=== PATIENT | male | born 1970 | race Two or more races ===

== ENCOUNTER 2019-02-13 07:50 | Inpatient (IN) ==
[2019-02-13] MEDS ORDERED: SODIUM CHLORIDE 0.9% 1000ML 1,000 ML IV SCH (08:15)
[2019-02-13 08:26] LABS: Basophils # (auto) 0.03 K/uL (0-0.2); Basophils % (auto) 0.4 %; Eosinophils # (auto) 0.07 K/uL (0-0.5); Eosinophils % (auto) 0.8 %; Hematocrit (blood only) 33.7 % (42-52); Hemoglobin 12.1 g/dL (14.0-18.0); Immature Granulocytes # (auto) 0.01 K/uL (0.00-0.02); Immature Granulocytes % (auto) 0.1 %; Lymphocytes # (auto) 0.85 K/uL (1.2-3.4); Lymphocytes % (auto) 10.3 %; Mean Corpuscular Hgb Conc 35.9 g/dL (32-36); Mean Corpuscular Volume 83.4 fL (80-100); Monocytes % (auto) 7.3 %; Neutrophils # (auto) 6.69 K/uL (1.4-6.5); Neutrophils % (auto) 81.1 %; Platelet Count 238 K/uL (130-400); RDW Coefficient of Variation 12.4 % (11.5-14.5); RDW Standard Deviation 37.8 fL (36.4-46.3); Red Blood Count 4.04 M/uL (4.7-6.1); White Blood Count 8.25 K/uL (4.8-10.8)
[2019-02-13 08:33] LABS: Aspartate Aminotransferase 29 U/L (15-37); BUN Creatinine Ratio 18.8 (10-20); Bilirubin Direct 0.2 mg/dl (0-0.2); Blood Urea Nitrogen 19 mg/dl (7-18); Calcium 8.7 mg/dl (8.5-10.1); Carbon Dioxide 27 mmol/L (21-32); Chloride 98 mmol/L (98-107); Creatinine Clr Calc Pharmacy 93.5 ml/min; Est GFR (Non-African American) 91.4; Glucose 182 mg/dl (70-99); Magnesium 1.9 mg/dl (1.8-2.4); Potassium 3.8 mmol/L (3.5-5.1); Sodium 133 mmol/L (136-145)
[2019-02-13 08:37] LABS: Alanine Aminotransferase 33 U/L (12-78); Alkaline Phosphatase 120 U/L (45-117); Bilirubin,Total 0.9 mg/dl (0.2-1); Globulin 4.1 gm/dl (2.5-4.0); Phosphorus 3.1 mg/dl (2.5-4.9); Total Protein 8.1 gm/dl (6.4-8.2); Troponin I < 0.015 ng/ml (0-0.045)
[2019-02-13] MEDS ORDERED: PROCHLORPERAZINE 2 ML IV ONE (08:46)
[2019-02-13] MEDS ORDERED: FAMOTIDINE 20MG IV PUSH 20 MG/5 ML SYR IV STA (08:46)
[2019-02-13] MEDS ORDERED: GI COCKTAIL ED USE PO STA (08:46)
[2019-02-13] MEDS ORDERED: SODIUM CHLORIDE 0.9% 1000ML 1,000 ML IV ONE (08:47)
--- NOTE | 2019-02-13 09:12 | XRay Report ---
XR chest 1V portable HISTORY: 48 years-old Male Chest Pain acute atypical chest pain COMPARISON: None available TECHNIQUE: Portable AP view of the chest FINDINGS: Cardiac silhouette is upper limits of normal in size. No pneumothorax, pleural effusion or overt pulm onary edema. Subsegmental bibasilar opacities are noted. Mild degenerative changes of the shoulders a nd spine. IMPRESSION: Minimal bibasilar opacities suggest atelectasis with summation density. No acute process identified. The above report was generated using voice recognition software. It may contain grammatical, syntax o r spelling errors. Electronically signed by: Vincent Heath M.D. 02/13/2019 9:10 AM
[2019-02-13] MEDS ORDERED: SUCRALFATE 1 GM/10 ML UDC PO STA (10:51)
[2019-02-13] MEDS ORDERED: SUCRALFATE 1 GM TAB ONE (11:18)
[2019-02-13] MEDS ORDERED: OPTIRAY 320 125ml IV PRN (11:35)
--- NOTE | 2019-02-13 11:55 | CT Scan Report ---
CT angio chest PE protocol HISTORY: 48 years-old Male with PE. Acute chest pain with shortness of breath, nausea and vomiting TECHNIQUE: Multiple CTA images of the chest were obtained after the intravenous administration of 119 ml Optiray 320. Coronal and sagittal MIPS were obtained from the axial data set and were submitted for review. All measurements were obtained according to NASCET criteria. A dose lowering technique w as utilized adhering to the principles of ALARA. COMPARISON: Chest radiograph and CT abdomen and pelvis studies of same day FINDINGS: CTA: Heart is mildly enlarged. No pericardial effusion. No thoracic aortic aneurysm or dissection. Patency of the imaged great vessels. The pulmonary arterial tree is opacified to level of the distal and sub segmental branches. The subsegmental branches of the lung bases are suboptimally visualized secondary to respiratory motion and contrast bolus timing. Segmental and subsegmental pulmonary emboli of the right upper lobe are noted (for example see image 192 of series 4) which are partially occlusive Ther e is no central pulmonary emboli or evidence of right heart strain. CT CHEST: No focal thyroid nodule or adenopathy. There is no pneumothorax or pleural effusion. Mild dependent s ubsegmental bibasilar groundglass densities suggest atelectasis. Calcified granuloma of the right upp er lobe. No suspicious pulmonary nodules or masses. Central airways appear patent. Wall thickening of the distal esophagus with mild gaseous distention. Soft tissues are unremarkable. Bones appear to be intact. IMPRESSION: 1. Segmental and subsegmental partially occlusive age-indeterminate pulmonary emboli of the right upp er lobe. The distal segmental and subsegmental branches of the lung bases are suboptimally visualized secondary to respiratory motion. 2. No adenopathy or focal airspace consolidation. 3. Mild nonspecific wall thickening about the distal esophagus. The above report was generated using voice recognition software. It may contain grammatical, syntax o r spelling errors. Electronically signed by: Vincent Heath M.D. 02/13/2019 11:54 AM
[2019-02-13 12:03] LABS: Appearance Urine Clear (Clear); Bacteria Urine Automated Negative (Negative); Bilirubin Urine Negative (Negative); Blood Urine Trace (Negative); Color Urine Yellow; Glucose Urine UA Negative (Negative); Ketones Urine Negative (Negative); Leukocyte Esterase Urine Negative (Negative); Nitrite Urine Negative (Negative); Protein Urine Negative (Negative); RBC Urine Automated 0-4 /hpf (0-4); Specific Gravity Urine 1.028 (1.000-1.030); Urobilinogen Urine Negative (Negative); pH Urine 5.5 (4.5-7.5)
--- NOTE | 2019-02-13 12:07 | CT Scan Report ---
ABDOMEN AND PELVIS CT WITH IV CONTRAST HISTORY: Acute generalized abdominal pain with nausea and vomiting abd pain, n/v TECHNIQUE: Multiaxial CT images of the abdomen and pelvis were performed following the use of intrave nous contrast. A dose lowering technique was utilized adhering to the principles of ALARA. COMPARISON STUDY: CTA of the chest of same day. FINDINGS: Minimal subsegmental bibasilar atelectasis. Suggestion of a 4 mm solid nodule of the basal left lower lobe, image 43 series 6. No pneumatosis or pneumoperitoneum. Study is mildly motion degraded. Imaged inferior cardiac chambers are mildly enlarged. Gallbladder, spleen, liver, pancreas and adrenal glands appear unremarkable. Mild nonspecific bilater al perinephric stranding. Distention of the urinary bladder measures up to 19.3 cm in length. Prostat e is prominent, 4.3 cm transversely. Aorta and IVC appear unremarkable. Mildly enlarged bilateral ang le chain lymph nodes are seen measuring up to 12 mm in short axis with thin cortices. Mild nonspecifi c wall thickening of the distal esophagus with mild gaseous distention. Layering hyperdense material within the gastric fundus. No small bowel obstruction. Mild to moderate volume of formed stool noted throughout the colon. Normal-appearing appendix. Terminal ileum is also unremarkable. There are a few scattered nondilated fluid-filled loops of small bowel noted throughout the central abdomen. No asci adrianne or mesenteric inflammation. Soft tissues are unremarkable. Spondylitic spurring and facet arthros is of the spine with at least moderate central canal stenosis at L5-S1. IMPRESSION: 1. Moderate to marked urinary bladder distention. Correlate clinically to exclude urinary bladder out let obstruction. 2. No bowel obstruction or bowel wall thickening. Normal appendix. 3. A few scattered loops of nondilated fluid-filled small bowel are noted with air-fluid levels. This may be physiologic or reflect a mild enteritis. 4. Additional findings as above. Electronically signed by: Vincent Heath M.D. 02/13/2019 12:06 PM
[2019-02-13 12:14] LABS: Sperm Urine Present (None Prsent)
--- NOTE | 2019-02-13 14:23 | CT Scan Report ---
CT SCAN OF THE BRAIN WITHOUT IV CONTRAST CLINICAL HISTORY: Change in mental status. COMPARISON STUDY: No priors. TECHNIQUE: Unenhanced axial CT scan of the brain is performed from the vertex to the skull base. A d ose lowering technique was utilized adhering to the principles of ALARA. FINDINGS: Brain parenchyma: The brain parenchyma is normal in appearance. There is no hemorrhage, mass effect, or evidence of acute territorial ischemia by CT criteria. Caraballo-white matter differentiation is preser chriss. No extra-axial fluid collection is seen. Ventricles, sulci, cisterns: Normal in configuration. Intracranial vasculature: The visualized intracranial vasculature at the skull base is normal in appe arance. Calvarium: Unremarkable. Sinuses and mastoids: The visualized paranasal sinuses are clear. The mastoid air cells are well pneu matized. Orbits: The bony orbits are grossly intact. IMPRESSION: No acute intracranial abnormality. Electronically signed by: Cash Hilliard M.D. 02/13/2019 2:21 PM
[2019-02-13 14:37] LABS: D Dimer 1110 ug/L FEU (0-500)
--- NOTE | 2019-02-13 15:21 | Emergency Department Note ---
Entered by Gayla Holcomb acting as a scribe for Raphael German MD History of Present Illness General Chief complaint: Chest Pain Stated complaint: chest pain Time Seen by Provider: 02/13/19 07:53 Source: patient History of Present Illness Onset (ago): day(s) 1 Location: chest Pain Consistency: + other (episode) Quality: + constant Associated symptoms: + nausea/vomiting (vomiting) The patient is a 48 year old male with a history of diabetes that is presenting to the Emergency Room with complaints of an episode of constant left-sided chest pain that started yesterday. The patient reports that he has some associated vomiting. He states that he was unable to sleep last night secondary to his pain and vomiting. The patient notes that he has a history of chronic diarrhea and diabetes. 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 He reports that his blood glucose level was 182mg/dL this morning and denies any recent episodes of hyperglycemia. He denies wearing O2 regularly at his correctional facility. Home Medications Home Medications Medication Instructions Recorded Confirmed Type hydrochlorothiazide 25 mg PO DAILY 02/13/19 02/13/19 History insulin NPH and regular human 15 unit SUBCUT QPM 02/13/19 02/13/19 History insulin NPH and regular human 25 unit SUBCUT QAM 02/13/19 02/13/19 History lisinopril 40 mg PO DAILY 02/13/19 02/13/19 History metformin 1,000 mg PO BID 02/13/19 02/13/19 History mineral oil-isopropyl myristat 1 applic TOPICAL DAILY PRN 02/13/19 02/13/19 History [Hydrocerin] naproxen 500 mg PO BID PRN 02/13/19 02/13/19 History Allergies Allergy/AdvReac Type Severity Reaction Status Date / Time No Known Allergies Allergy Unverified 02/13/19 08:45 Past Med/Surg History Medical History Chronic diarrhea (Chronic) Diabetes mellitus (Chronic) Family History Other No significant family history Social History Current Living Situation: Other Current Living Situation Comment: Incarcerated current occupational status: unemployed Feels Safe at Home: Yes Smoking Status: Former smoker Review of Systems See HPI for pertinent positives & negatives. and A total of 10 systems reviewed and were otherwise negative Physical Exam Vital Signs Vital Signs - 24 hr 02/13/19 07:55 02/13/19 08:00 02/13/19 08:26 Temperature 37.1 C Temperature Source Oral Sepsis Recent Fever Within 48 Hours No Sepsis Action Taken by Nursing No Action Required Pulse Rate 91 H 90 Pulse Rate [Left Finger] Pulse Rate from SpO2 Sensor 91 H 90 Respiratory Rate 19 19 Respiratory Effort / Characteristics Non-Labored Spontaneous Respiratory Depth Normal Blood Pressure 145/80 H 142/82 H Blood Pressure [Left Arm] Blood Pressure Mean 101 102 Blood Pressure Mean [Left Arm] Blood Pressure Position Lying Pulse Oximetry 94 95 95 Oxygen Delivery Method Room Air Room Air 02/13/19 08:30 02/13/19 09:00 02/13/19 09:30 Temperature Temperature Source Sepsis Recent Fever Within 48 Hours Sepsis Action Taken by Nursing Pulse Rate 84 95 H 96 H Pulse Rate [Left Finger] Pulse Rate from SpO2 Sensor 85 95 H 96 H Respiratory Rate 18 17 17 Respiratory Effort / Characteristics Respiratory Depth Blood Pressure 166/94 H 167/93 H 170/95 H Blood Pressure [Left Arm] Blood Pressure Mean 118 117 120 Blood Pressure Mean [Left Arm] Blood Pressure Position Pulse Oximetry 96 98 97 Oxygen Delivery Method 02/13/19 10:00 02/13/19 10:30 02/13/19 11:00 Temperature Temperature Source Sepsis Recent Fever Within 48 Hours Sepsis Action Taken by Nursing Pulse Rate 89 86 87 Pulse Rate [Left Finger] Pulse Rate from SpO2 Sensor 89 87 87 Respiratory Rate 16 16 16 Respiratory Effort / Characteristics Respiratory Depth Blood Pressure 129/79 151/93 H 135/93 Blood Pressure [Left Arm] Blood Pressure Mean 95 112 107 Blood Pressure Mean [Left Arm] Blood Pressure Position Pulse Oximetry 93 95 96 Oxygen Delivery Method 02/13/19 11:53 02/13/19 12:00 02/13/19 12:30 Temperature Temperature Source Sepsis Recent Fever Within 48 Hours Sepsis Action Taken by Nursing Pulse Rate 90 87 83 Pulse Rate [Left Finger] Pulse Rate from SpO2 Sensor 90 87 83 Respiratory Rate Respiratory Effort / Characteristics Respiratory Depth Blood Pressure 148/102 H 175/102 H 144/91 H Blood Pressure [Left Arm] Blood Pressure Mean 117 126 108 Blood Pressure Mean [Left Arm] Blood Pressure Position Pulse Oximetry 96 98 99 Oxygen Delivery Method 02/13/19 13:00 02/13/19 13:30 02/13/19 15:06 Temperature Temperature Source Sepsis Recent Fever Within 48 Hours Sepsis Action Taken by Nursing Pulse Rate 80 75 Pulse Rate [Left Finger] 78 Pulse Rate from SpO2 Sensor 80 75 Respiratory Rate 14 Respiratory Effort / Characteristics Respiratory Depth Blood Pressure 152/101 H 135/90 Blood Pressure [Left Arm] 151/88 H Blood Pressure Mean 118 105 Blood Pressure Mean [Left Arm] 109 Blood Pressure Position Pulse Oximetry 94 96 100 Oxygen Delivery Method GENERAL: Awake, alert, drowsy and fatigued appearing but alert to voice, in no distress HENT: Normocephalic, atraumatic. Oropharynx with dry mucous membranes and otherwise unremarkable. EYES: Normal conjunctiva. Sclera non-icteric. NECK: Supple. No nuchal rigidity. FROM. No JVD. RESPIRATORY: Clear to auscultation. CARDIAC: Regular rate, normal rhythm. Extremities warm and well perfused. Pulses equal. ABDOMEN: Soft, non-distended. Mild epigastric discomfort without discrete tenderness to palpation. No rebound or guarding. No masses. RECTAL: No stool, blood, or melena. MUSCULOSKELETAL: Chest examination reveals no tenderness. The back is symmetrical on inspection without obvious abnormality. There is no CVA tenderness to palpation. No joint edema. LOWER EXTREMITIES: Calves are equal size bilaterally and non-tender. No edema. No discoloration. NEURO: Normal sensorium. No sensory or motor deficits noted. SKIN: No rash or jaundice noted. Course 0806:The patient was evaluated in room B10. A complete history and physical examination was performed. 1051: I reevaluated the patient at this time. He states that he is not feeling better. A CT of the chest was ordered at this time. 1315: I discussed the patients case with MEREDITH Ornelas, who will evaluate the patient for further management and care with Dr. Bennett as the attending physician. 1340: After their evaluation, the [facility] team asked for a repeat troponin and D-dimer. Dr. Bennett recommends that the patient be discharged if his results are negative. 1347: I updated the patient on the current treatment plan. Consultations Consultation #1: I discussed the patients case with MEREDITH Ornelas, who will evaluate the patient for further management and care with Dr. Bennett as the attending physician. Time: 13:15 Administered Medications Ioversol (Optiray 320 125ml) 119 ml IV ONCE PRN PRN Reason: Interaction Checking Stop: 02/17/19 11:34 Last Admin: 02/13/19 11:36 Dose: 119 ml Documented by: [id number] Discontinued Medications Al Hydrox/Mg Hydrox/Simethicone () 1 dose PO NOW STA Stop: 02/13/19 08:47 Last Admin: 02/13/19 08:54 Dose: 1 dose Documented by: [id number] Sodium Chloride (Nss 1000ml) 1,000 mls @ 999 mls/hr IV .Q1H1M LUCILA Stop: 02/13/19 09:15 Last Infusion: 02/13/19 10:17 Dose: 0 mls/hr Documented by: [id number] Admin: 02/13/19 08:35 Dose: 999 mls/hr Documented by: [id number] Famotidine (Pepcid 20mg Iv Push) 20 mg in 5 mls @ 2.5 mls/min IV NOW STA Stop: 02/13/19 08:47 Last Admin: 02/13/19 08:53 Dose: 2.5 mls/min Documented by: [id number] Prochlorperazine (Compazine) 2 mls @ 1 mls/min IV ONE ONE Stop: 02/13/19 08:47 Last Admin: 02/13/19 08:53 Dose: 1 mls/min Documented by: [id number] Sodium Chloride (Nss 1000ml) 1,000 mls @ 999 mls/hr IV .Q1H1M ONE Stop: 02/13/19 09:47 Last Infusion: 02/13/19 10:16 Dose: 0 mls/hr Documented by: [id number] Infusion: 02/13/19 10:16 Dose: 0 mls/hr Documented by: [id number] Admin: 02/13/19 08:57 Dose: 999 mls/hr Documented by: [id number] Sucralfate (Carafate) 1 gm PO NOW STA Stop: 02/13/19 10:52 Last Admin: 02/13/19 11:20 Dose: Not Given Documented by: [id number] Sucralfate (Carafate Tab) Confirm Administered Dose 1 gm .ROUTE .Seatwave-[place]knot ONE Stop: 02/13/19 11:19 Last Admin: 02/13/19 11:20 Dose: 1 gm Documented by: [id number] Medical Decision Making Differential Diagnosis Differential diagnosis: Etiologies such as cardiac ischemia, aortic dissection, pulmonary embolism, pneumonia, pneumothorax, musculoskeletal, infections, pericarditis, myocarditis, esophageal rupture, gastrointestinal, as well as others were entertained. Medical Records Attestation: I reviewed the patient's medical records. Home Medications Current Medication List: was personally reviewed by me Laboratory Data Attestation: I reviewed the patient's lab results. Result diagrams: 02/13/19 08:01 02/13/19 08:01 Lab Results 02/13/19 02/13/19 02/13/19 Range/Units 08:01 08:01 08:01 WBC 8.25 (4.8-10.8) K/uL RBC 4.04 L (4.7-6.1) M/uL Hgb 12.1 L (14.0-18.0) g/dL Hct 33.7 L (42-52) % MCV 83.4 (80-100) fL MCH 30.0 (25-34) pg MCHC 35.9 (32-36) g/dL RDW Std Deviation 37.8 (36.4-46.3) fL RDW Coeff of Maya 12.4 (11.5-14.5) % Plt Count 238 (130-400) K/uL MPV 10.0 (7.4-10.4) fL Immature Gran % (Auto) 0.1 % Neut % (Auto) 81.1 % Lymph % (Auto) 10.3 % [place] % (Auto) 7.3 % Eos % (Auto) 0.8 % Baso % (Auto) 0.4 % Immature Gran # (Auto) 0.01 (0.00-0.02) K/uL Neut # (Auto) 6.69 H (1.4-6.5) K/uL Lymph # (Auto) 0.85 L (1.2-3.4) K/uL [place] # (Auto) 0.60 H (0.11-0.59) K/uL Eos # (Auto) 0.07 (0-0.5) K/uL Baso # (Auto) 0.03 (0-0.2) K/uL D-Dimer (0-500) ug/L FEU ABG pH (7.35-7.45) ABG pCO2 (35-46) mmHg ABG pO2 (80-95) mm/Hg ABG HCO3 (19-24) mmol/L ABG O2 Saturation (90-95) % ABG Base Excess (-9-1.8) mEq/L Bib Test (Pos) Barometric Pressure mm/Hg Oxygen Given Sodium 133 L (136-145) mmol/L Potassium 3.8 (3.5-5.1) mmol/L Chloride 98 (98-107) mmol/L Carbon Dioxide 27 (21-32) mmol/L Anion Gap 8.0 (3-11) BUN 19 H (7-18) mg/dl Creatinine 0.98 (0.6-1.4) mg/dl Est Cr Clr Drug Dosing 93.5 ml/min Est GFR ( Amer) 106.0 Est GFR (Non-Af Amer) 91.4 BUN/Creatinine Ratio 18.8 (10-20) Glucose 182 H (70-99) mg/dl Osmolality 282 (280-300) mOsm/kg Calcium 8.7 (8.5-10.1) mg/dl Phosphorus 3.1 (2.5-4.9) mg/dl Magnesium 1.9 (1.8-2.4) mg/dl Total Bilirubin 0.9 (0.2-1) mg/dl Direct Bilirubin 0.2 (0-0.2) mg/dl AST 29 (15-37) U/L ALT 33 (12-78) U/L Alkaline Phosphatase 120 H (45-117) U/L Troponin I < 0.015 (0-0.045) ng/ml Total Protein 8.1 (6.4-8.2) gm/dl Albumin 4.0 (3.4-5.0) gm/dl Globulin 4.1 H (2.5-4.0) gm/dl Albumin/Globulin Ratio 1.0 (0.9-2) Lipase 109 (73-393) U/L Urine Color Urine Appearance (Clear) Urine pH (4.5-7.5) Ur Specific [place] (1.000-1.030) Urine Protein (Negative) Urine Glucose (UA) (Negative) Urine Ketones (Negative) Urine Blood (Negative) Urine Nitrite (Negative) Urine Bilirubin (Negative) Urine Urobilinogen (Negative) Ur Leukocyte Esterase (Negative) Urine WBC (Auto) (0-5) /hpf Urine RBC (Auto) (0-4) /hpf U Hyaline Cast (Auto) (0-5) /lpf U Epithel Cells (Auto) (0-5) /lpf Urine Bacteria (Auto) (Negative) Urine Sperm (None Prsent) 02/13/19 02/13/19 02/13/19 Range/Units 11:35 14:19 14:19 WBC (4.8-10.8) K/uL RBC (4.7-6.1) M/uL Hgb (14.0-18.0) g/dL Hct (42-52) % MCV (80-100) fL MCH (25-34) pg MCHC (32-36) g/dL RDW Std Deviation (36.4-46.3) fL RDW Coeff of Maya (11.5-14.5) % Plt Count (130-400) K/uL MPV (7.4-10.4) fL Immature Gran % (Auto) % Neut % (Auto) % Lymph % (Auto) % [place] % (Auto) % Eos % (Auto) % Baso % (Auto) % Immature Gran # (Auto) (0.00-0.02) K/uL Neut # (Auto) (1.4-6.5) K/uL Lymph # (Auto) (1.2-3.4) K/uL [place] # (Auto) (0.11-0.59) K/uL Eos # (Auto) (0-0.5) K/uL Baso # (Auto) (0-0.2) K/uL D-Dimer 1110 H* (0-500) ug/L FEU ABG pH (7.35-7.45) ABG pCO2 (35-46) mmHg ABG pO2 (80-95) mm/Hg ABG HCO3 (19-24) mmol/L ABG O2 Saturation (90-95) % ABG Base Excess (-9-1.8) mEq/L Bib Test (Pos) Barometric Pressure mm/Hg Oxygen Given Sodium (136-145) mmol/L Potassium (3.5-5.1) mmol/L Chloride (98-107) mmol/L Carbon Dioxide (21-32) mmol/L Anion Gap (3-11) BUN (7-18) mg/dl Creatinine (0.6-1.4) mg/dl Est Cr Clr Drug Dosing ml/min Est GFR ( Amer) Est GFR (Non-Af Amer) BUN/Creatinine Ratio (10-20) Glucose (70-99) mg/dl Osmolality (280-300) mOsm/kg Calcium (8.5-10.1) mg/dl Phosphorus (2.5-4.9) mg/dl Magnesium (1.8-2.4) mg/dl Total Bilirubin (0.2-1) mg/dl Direct Bilirubin (0-0.2) mg/dl AST (15-37) U/L ALT (12-78) U/L Alkaline Phosphatase (45-117) U/L Troponin I < 0.015 (0-0.045) ng/ml Total Protein (6.4-8.2) gm/dl Albumin (3.4-5.0) gm/dl Globulin (2.5-4.0) gm/dl Albumin/Globulin Ratio (0.9-2) Lipase (73-393) U/L Urine Color Yellow Urine Appearance Clear (Clear) Urine pH 5.5 (4.5-7.5) Ur Specific [place] 1.028 (1.000-1.030) Urine Protein Negative (Negative) Urine Glucose (UA) Negative (Negative) Urine Ketones Negative (Negative) Urine Blood Trace H (Negative) Urine Nitrite Negative (Negative) Urine Bilirubin Negative (Negative) Urine Urobilinogen Negative (Negative) Ur Leukocyte Esterase Negative (Negative) Urine WBC (Auto) 5-10 H (0-5) /hpf Urine RBC (Auto) 0-4 (0-4) /hpf U Hyaline Cast (Auto) 1-5 (0-5) /lpf U Epithel Cells (Auto) 10-20 H (0-5) /lpf Urine Bacteria (Auto) Negative (Negative) Urine Sperm Present A (None Prsent) 02/13/19 Range/Units 15:59 WBC (4.8-10.8) K/uL RBC (4.7-6.1) M/uL Hgb (14.0-18.0) g/dL Hct (42-52) % MCV (80-100) fL MCH (25-34) pg MCHC (32-36) g/dL RDW Std Deviation (36.4-46.3) fL RDW Coeff of Maya (11.5-14.5) % Plt Count (130-400) K/uL MPV (7.4-10.4) fL Immature Gran % (Auto) % Neut % (Auto) % Lymph % (Auto) % [place] % (Auto) % Eos % (Auto) % Baso % (Auto) % Immature Gran # (Auto) (0.00-0.02) K/uL Neut # (Auto) (1.4-6.5) K/uL Lymph # (Auto) (1.2-3.4) K/uL [place] # (Auto) (0.11-0.59) K/uL Eos # (Auto) (0-0.5) K/uL Baso # (Auto) (0-0.2) K/uL D-Dimer (0-500) ug/L FEU ABG pH 7.40 (7.35-7.45) ABG pCO2 43 (35-46) mmHg ABG pO2 79 L (80-95) mm/Hg ABG HCO3 26 H (19-24) mmol/L ABG O2 Saturation 95.2 H (90-95) % ABG Base Excess 0.6 (-9-1.8) mEq/L Bib Test Pos (Pos) Barometric Pressure 731.3 mm/Hg Oxygen Given ROOM AIR Sodium (136-145) mmol/L Potassium (3.5-5.1) mmol/L Chloride (98-107) mmol/L Carbon Dioxide (21-32) mmol/L Anion Gap (3-11) BUN (7-18) mg/dl Creatinine (0.6-1.4) mg/dl Est Cr Clr Drug Dosing ml/min Est GFR ( Amer) Est GFR (Non-Af Amer) BUN/Creatinine Ratio (10-20) Glucose (70-99) mg/dl Osmolality (280-300) mOsm/kg Calcium (8.5-10.1) mg/dl Phosphorus (2.5-4.9) mg/dl Magnesium (1.8-2.4) mg/dl Total Bilirubin (0.2-1) mg/dl Direct Bilirubin (0-0.2) mg/dl AST (15-37) U/L ALT (12-78) U/L Alkaline Phosphatase (45-117) U/L Troponin I (0-0.045) ng/ml Total Protein (6.4-8.2) gm/dl Albumin (3.4-5.0) gm/dl Globulin (2.5-4.0) gm/dl Albumin/Globulin Ratio (0.9-2) Lipase (73-393) U/L Urine Color Urine Appearance (Clear) Urine pH (4.5-7.5) Ur Specific [place] (1.000-1.030) Urine Protein (Negative) Urine Glucose (UA) (Negative) Urine Ketones (Negative) Urine Blood (Negative) Urine Nitrite (Negative) Urine Bilirubin (Negative) Urine Urobilinogen (Negative) Ur Leukocyte Esterase (Negative) Urine WBC (Auto) (0-5) /hpf Urine RBC (Auto) (0-4) /hpf U Hyaline Cast (Auto) (0-5) /lpf U Epithel Cells (Auto) (0-5) /lpf Urine Bacteria (Auto) (Negative) Urine Sperm (None Prsent) Imaging Data Radiologist's Impression: Radiology results as stated below per my review and the radiologist's interpretation: XR chest 1V portable HISTORY: 48 years-old Male Chest Pain acute atypical chest pain COMPARISON: None available TECHNIQUE: Portable AP view of the chest FINDINGS: Cardiac silhouette is upper limits of normal in size. No pneumothorax, pleural effusion or overt pulmonary edema. Subsegmental bibasilar opacities are noted. Mild degenerative changes of the shoulders and spine. IMPRESSION: Minimal bibasilar opacities suggest atelectasis with summation density. No acute process identified. The above report was generated using voice recognition software. It may contain grammatical, syntax or spelling errors. Electronically signed by: Vincent Heath M.D. 02/13/2019 9:[address] angio chest PE protocol HISTORY: 48 years-old Male with PE. Acute chest pain with shortness of breath, nausea and vomiting TECHNIQUE: Multiple CTA images of the chest were obtained after the intravenous administration of 119 ml Optiray 320. Coronal and sagittal MIPS were obtained from the axial data set and were submitted for review. All measurements were obtained according to NASCET criteria. A dose lowering technique was utilized adhering to the principles of ALARA. COMPARISON: Chest radiograph and CT abdomen and pelvis studies of same day FINDINGS: CTA: Heart is mildly enlarged. No pericardial effusion. No thoracic aortic aneurysm or dissection. Patency of the imaged great vessels. The pulmonary arterial tree is opacified to level of the distal and subsegmental branches. The subsegmental branches of the lung bases are suboptimally visualized secondary to respiratory motion and contrast bolus timing. Segmental and subsegmental pulmonary emboli of the right upper lobe are noted (for example see image 192 of series 4) which are partially occlusive There is no central pulmonary emboli or evidence of right heart strain. CT CHEST: No focal thyroid nodule or adenopathy. There is no pneumothorax or pleural effusion. Mild dependent subsegmental bibasilar groundglass densities suggest atelectasis. Calcified granuloma of the right upper lobe. No suspicious pulmonary nodules or masses. Central airways appear patent. Wall thickening of the distal esophagus with mild gaseous distention. Soft tissues are unremarkable. Bones appear to be intact. IMPRESSION: 1. Segmental and subsegmental partially occlusive age-indeterminate pulmonary emboli of the right upper lobe. The distal segmental and subsegmental branches of the lung bases are suboptimally visualized secondary to respiratory motion. 2. No adenopathy or focal airspace consolidation. 3. Mild nonspecific wall thickening about the distal esophagus. The above report was generated using voice recognition software. It may contain grammatical, syntax or spelling errors. Electronically signed by: Vincent Heath M.D. 02/13/2019 11:54 AM ABDOMEN AND PELVIS CT WITH IV CONTRAST HISTORY: Acute generalized abdominal pain with nausea and vomiting abd pain, n/v TECHNIQUE: Multiaxial CT images of the abdomen and pelvis were performed following the use of intravenous contrast. A dose lowering technique was utilized adhering to the principles of ALARA. COMPARISON STUDY: CTA of the chest of same day. FINDINGS: Minimal subsegmental bibasilar atelectasis. Suggestion of a 4 mm solid nodule of the basal left lower lobe, image 43 series 6. No pneumatosis or pneumoperitoneu m. Study is mildly motion degraded. Imaged inferior cardiac chambers are mildly enlarged. Gallbladder, spleen, liver, pancreas and adrenal glands appear unremarkable. Mild nonspecific bilateral perinephric stranding. Distention of the urinary bladder measures up to 19.3 cm in length. Prostate is prominent, 4.3 cm transversely. Aorta and IVC appear unremarkable. Mildly enlarged bilateral angle chain lymph nodes are seen measuring up to 12 mm in short axis with thin cortices. Mild nonspecific wall thickening of the distal esophagus with mild gaseous distention. Layering hyperdense material within the gastric fundus. No small bowel obstruction. Mild to moderate volume of formed stool noted thr oughout the colon. Normal-appearing appendix. Terminal ileum is also unremarkable. There are a few scattered nondilated fluid-filled loops of small bowel noted throughout the central abdomen. No ascites or mesenteric inflammation. Soft tissues are unremarkable. Spondylitic spurring and facet arthrosis of the spine with at least moderate central canal stenosis at L5-S1. IMPRESSION: 1. Moderate to marked urinary bladder distention. Correlate clinically to exclude urinary bladder outlet obstruction. 2. No bowel obstruction or bowel wall thickening. Normal appendix. 3. A few scattered loops of nondilated fluid-filled small bowel are noted with air-fluid levels. This may be physiologic or reflect a mild enteritis. 4. Additional findings as above. Electronically signed by: Vincent Heath M.D. 02/13/2019 12:[address] SCAN OF THE BRAIN WITHOUT IV CONTRAST CLINICAL HISTORY: Change in mental status. COMPARISON STUDY: No priors. TECHNIQUE: Unenhanced axial CT scan of the brain is performed from the vertex to the skull base. A dose lowering technique was utilized adhering to the principles of ALARA. FINDINGS: Brain parenchyma: The brain parenchyma is normal in appearance. There is no hemorrhage, mass effect, or evidence of acute territorial ischemia by CT criteria. Caraballo-white matter differentiation is preserved. No extra-axial fluid collection is seen. Ventricles, sulci, cisterns: Normal in configuration. Intracranial vasculature: The visualized intracranial vasculature at the skull base is normal in appearance. Calvarium: Unremarkable. Sinuses and mastoids: The visualized paranasal sinuses are clear. The mastoid air cells are well pneumatized. Orbits: The bony orbits are grossly intact. IMPRESSION: No acute intracranial abnormality. Electronically signed by: Cash Hilliard M.D. 02/13/2019 2:21 PM ECG Data Attestation: I personally reviewed and interpreted this ECG as follows: Indication: weakness Rate (beats per minute): 92 Rhythm: normal sinus Findings: + other (normal axis); no ST depression, no ST elevation and no acute ischemic change Blood Pressure Blood Pressure Findings: Elevated blood pressure Blood Pressure Disposition: elevated BP felt to be situational MDM Narrative The patient is a pleasant 48-year-old gentleman current correction inmate with a past medical history of mixed type diabetes on insulin, HTN who presents emergency department from his correction facility for worsening chest pain in setting of having persistent nausea vomiting and diarrhea last night in the setting of chronic symptoms of nausea and diarrhea per hpi. On arrival patient is no acute distress, afebrile stable vital signs. The patient does appear drowsy but is alert and oriented to voice and otherwise appropriate. The patient reports that he did not sleep at all last night due to his nausea and vomiting and that is why he believes he is so sleepy. On exam patient appears clinically dry. He has mild epigastric discomfort without discrete tenderness. EKG without overt acute ischemia. Chest x-ray negative. Troponin negative. Chemistry without acidosis. BUN slightly elevated at 19 consistent with the patient's clinically dry appearance. Electrolytes and LFTs otherwise unremarkable. UA without convincing evidence of infection. However upon reevaluation patient reported persistent even worsening of his pain despite antacids and therefore CTs were performed which demonstrated near occlusive pulmonary embolism though interpreted as age-indeterminate. CT abdomen pelvis with question of cystitis however UA not consistent with infection. CT head negative for acute process. Patient does report being told he may have had blood in his stool and so rectal exam performed which demonstrated no stool, blood or melena at this time. Patient still drowsy though slightly more awake as he has been napping throughout his ED observation. Case was discussed with [place] Pete PA-C who reviewed case with attending physician Dr. Bennett and d-dimer performed to attempt to clarify if PE is chronic however d- dimer was elevated and so will evaluate patient for admission. Will defer decision for anticoagulation to admitting team. Impression & Plan Pulmonary embolism, Dehydration, Anemia Discharge Plan Visit Data Chief Complaint: Chest Pain Stated Complaint: chest pain ED Provider: Raphael German Discharge Problem: Pulmonary embolism, Dehydration, Anemia Forms Stand Alone Forms: Call Back Authorization, [facility] Prescriptions Prescriptions: No Action metformin 1,000 mg Tablet 1,000 mg PO BID RF: 0 hydrochlorothiazide 25 mg Tablet 25 mg PO DAILY RF: 0 lisinopril 40 mg Tablet 40 mg PO DAILY RF: 0 naproxen 500 mg Tablet 500 mg PO BID PRN (Reason: Pain) RF: 0 Hydrocerin Lotion 1 applic TOPICAL DAILY PRN (Reason: skin) RF: 0 insulin NPH and regular human 100 unit/mL (70-30) Insulin Pen 15 unit SUBCUT QPM RF: 0 insulin NPH and regular human 100 unit/mL (70-30) Insulin Pen 25 unit SUBCUT QAM RF: 0 Discharge Problem: Pulmonary embolism Qualifiers: Pulmonary embolism type: unspecified Chronicity: unspecified Acute cor pulmonale presence: without acute cor pulmonale Qualified Code(s): I26.99 - Other pulmonary embolism without acute cor pulmonale Anemia Qualifiers: Anemia type: unspecified type Qualified Code(s): D64.9 - Anemia, unspecified The scribe's documentation has been prepared under my direction and personally reviewed by me in its entirety. I confirm that the note above accurately reflects all work, treatment, procedures, and medical decision making performed by me.
[2019-02-13 16:09] LABS: Base Excess ABG 0.6 mEq/L (-9-1.8); HCO3 ABG 26 mmol/L (19-24); Oxygen Saturation ABG 95.2 % (90-95); PCO2 ABG 43 mmHg (35-46); PO2 ABG 79 mm/Hg (80-95)
[2019-02-13 16:10] LABS: Allen Test Pos (Pos)
--- NOTE | 2019-02-13 16:42 | History & Physical Report ---
Date of Service February 13, 2019 Assessment & Plan (1) Somnolence: (2) Pulmonary embolism: This is a 48-year-old incarcerated male who has a significant PMH of IDDM and HTN who presents to [facility] ED secondary to N/V/D and chest pain. In ED pt remained hemodynamically stable BMP significant for Na 133, bun 19, cr 0.98, glucose 182, mag 1.9 trop negative x 2 Ddimer elevated CTA chest + RUL subsegmental PE of indeterminate age, mild distal esophagus wall thickening CXR: Minimal bibasilar opacities suggest atelectasis with summation density. Urine negative for infection Due to significant somnolence there is concern for underlying drug ingestion vs infection, do not feel PE is causing somnolence admit to tele initiate Apixaban 10mg bid x 7 days then 5mg bid for RUL PE given extreme somnolence and fatigue will order skinner culture, drug tox, lactic acid, procal r/o infection pt with L basilar crackles and with report of cough -initiate IV azithromycin and Rocephin until cultures return Initiate Ranitidine 150mg po bid - pt had good response of IV famotidine (3) Dehydration: pt dry on exam, bun/cr 19/0.98 give IVF 110cc/hr x 2 L repeat bmp in a.m. (4) Anemia: H/H 12.1 and 33.7 unknown baseline no s/sx of bleeding monitor cbc (5) Diabetes mellitus: unknown A1C obtain A1C in am. Lantus/Novolog per protocol, titrate accordingly (6) HTN (hypertension): blood pressure labile will monitor continue lisinopril but hold HCTZ in setting of mild dehydration (7) DVT prophylaxis: SCDS/TEDS Eliquis being initiated Disposition: Discharge back to shelter Follow up: PCP at [facility] shelter Patient was seen and examined in collaboration with Dr. Bennett, please see addendum History of Present Illness Chief Complaint: N/V/D and chest pain Primary Care Provider: Rajeev Morin DO This is a 48-year-old incarcerated male who has a significant PMH of IDDM and HTN who presents to [facility] ED secondary to N/V/D and chest pain. Emesis began 1 day ago and continued through this morning until 630 a.m. He then developed L sided chest pain that was non radiating. He denies any associated SOB, palpitations, dizziness, lightheadedness with chest pain. Currently he is chest pain free. States pain was a, "dull ache." He states he vomitted approx 20 times. Admits to few specks of blood in vomit this morning but denies kia hematemesis. He has daily diarrhea but denies melena, hematochezia or abdominal pain. He did complain of LOPEZ early today but this has since subsided. +myalgias and cough but no hemoptysis. Pt very drowsy stating he was up all night vomiting and did not get any sleep. Guards are present stating patient has been like this since 8:30 this morning; referring to the somnolence and drowsiness. Pt denies any substance use while in shelter. Patient admits to prior tobacco and alcohol use, positive prior substance abuse with cocaine Denies any current tobacco, alcohol or drug abuse while in shelter Denies any past surgical history Denies any significant family history Allergies Allergy/AdvReac Type Severity Reaction Status Date / Time No Known Allergies Allergy Unverified 02/13/19 08:45 Home Medications Home Medications Medication Instructions Recorded Confirmed Type hydrochlorothiazide 25 mg PO DAILY 02/13/19 02/13/19 History insulin NPH and regular human 15 unit SUBCUT QPM 02/13/19 02/13/19 History insulin NPH and regular human 25 unit SUBCUT QAM 02/13/19 02/13/19 History lisinopril 40 mg PO DAILY 02/13/19 02/13/19 History metformin 1,000 mg PO BID 02/13/19 02/13/19 History mineral oil-isopropyl myristat 1 applic TOPICAL DAILY PRN 02/13/19 02/13/19 History [Hydrocerin] naproxen 500 mg PO BID PRN 02/13/19 02/13/19 History Past Med/Surg History Medical History HTN (hypertension) (Chronic) Chronic diarrhea (Chronic) Diabetes mellitus (Chronic) Surgical History No significant past surgical history (Chronic) Family History Other No significant family history Social History Preferred Language: [place]dean Communication Ability: Effective Current Living Situation: Other Current Living Situation Comment: Incarcerated current occupational status: unemployed Feels Safe at Home: Yes Smoking Status: Former smoker Hx Alcohol Use: Yes Hx Substance Use: Yes substance use type: crack/cocaine Review of Systems Review of Systems: As noted per HPI, 10 systems reviewed and negative unless noted above. Physical Exam Physical Exam: Gen: WD/WN, M, lying in bed, very drowsy, easily arousable with verbal stimuli but falls asleep quickly, NAD, Head: Normocephalic, Atraumatic Eyes: Sclera normal, no conjunctival injection, PERRLA, EOMI ENT: Gross hearing intact, normal pharynx, mucous membranes moist Neck: supple, no adenopathy, No JVD, no bruit, Resp: Clear to auscultation b/l with L basilar crackles, no wheeze or rhonchi. Normal insp/exp effort, no accessory muscle use CV: Regular rate, regular rhythm, no murmur, rub, gallop, or ectopy Abd: +BS x 4, soft, nontender, nondistended Musculoskeletal: moves extremities active rom x 4, strength intact, good wedding consultant strength Extremities: No edema bilaterally Skin: warm, moist, no rash, negative turgor, cap refill < 2sec Neuro: Alert and oriented x 3 to basics, speech normal, flat and drowsy mood/aff ect, cran nerve 2-12 intact grossly, negative Brudzinski/kernig sign : deferred Results & Data Vital Signs (Past 12 Hours) Vital Signs Temp Pulse Pulse Resp BP BP Pulse Ox 02/13/19 16:00 78 18 150/90 H 95 02/13/19 15:06 78 14 151/88 H 100 02/13/19 13:30 75 135/90 96 02/13/19 13:00 80 152/101 H 94 02/13/19 12:30 83 144/91 H 99 02/13/19 12:00 87 175/102 H 98 02/13/19 11:53 90 148/102 H 96 02/13/19 11:00 87 16 135/93 96 02/13/19 10:30 86 16 151/93 H 95 02/13/19 10:00 89 16 129/79 93 02/13/19 09:30 96 H 17 170/95 H 97 02/13/19 09:00 95 H 17 167/93 H 98 07/30/19 08:30 84 18 166/94 H 96 02/13/19 08:26 95 02/13/19 08:00 37.1 C 90 19 142/82 H 95 02/13/19 07:55 91 H 19 145/80 H 94 Laboratory Results Short CBC 02/13/19 Range/Units 08:01 WBC 8.25 (4.8-10.8) K/uL Hgb 12.1 L (14.0-18.0) g/dL Hct 33.7 L (42-52) % Plt Count 238 (130-400) K/uL BMP 02/13/19 08:01 Sodium 133 L Potassium 3.8 Chloride 98 Carbon Dioxide 27 BUN 19 H Creatinine 0.98 Glucose 182 H Calcium 8.7 Cardiac Enzymes 02/13/19 02/13/19 Range/Units 08:01 14:19 Troponin I < 0.015 < 0.015 (0-0.045) ng/ml Liver Function 02/13/19 Range/Units 08:01 Total Bilirubin 0.9 (0.2-1) mg/dl Direct Bilirubin 0.2 (0-0.2) mg/dl AST 29 (15-37) U/L ALT 33 (12-78) U/L Alkaline Phosphatase 120 H (45-117) U/L Albumin 4.0 (3.4-5.0) gm/dl Urine 02/13/19 Range/Units 11:35 Urine Color Yellow Urine Appearance Clear (Clear) Urine pH 5.5 (4.5-7.5) Ur Specific [place] 1.028 (1.000-1.030) Urine Protein Negative (Negative) Urine Glucose (UA) Negative (Negative) Diagnostic Findings CXR: IMPRESSION: Minimal bibasilar opacities suggest atelectasis with summation density. No acute process identified. Abd/Pelvis CT: IMPRESSION: 1. Moderate to marked urinary bladder distention. Correlate clinically to exclu de urinary bladder outlet obstruction. 2. No bowel obstruction or bowel wall thickening. Normal appendix. 3. A few scattered loops of nondilated fluid-filled small bowel are noted with air-fluid levels. This may be physiologic or reflect a mild enteritis. 4. Additional findings as above. Chest CTA: IMPRESSION: 1. Segmental and subsegmental partially occlusive age-indeterminate pulmonary emboli of the right upper lobe. The distal segmental and subsegmental branches of the lung bases are suboptimally visualized secondary to respiratory motion. 2. No adenopathy or focal airspace consolidation. 3. Mild nonspecific wall thickening about the distal esophagus. Head CT: IMPRESSION: No acute intracranial abnormality. Medications Administered Ioversol (Optiray 320 125ml) 119 ml IV ONCE PRN PRN Reason: Interaction Checking Stop: 02/17/19 11:34 Last Admin: 02/13/19 11:36 Dose: 119 ml Documented by: [id number] Discontinued Medications Al Hydrox/Mg Hydrox/Simethicone () 1 dose PO NOW STA Stop: 02/13/19 08:47 Last Admin: 02/13/19 08:54 Dose: 1 dose Documented by: [id number] Sodium Chloride (Nss 1000ml) 1,000 mls @ 999 mls/hr IV .Q1H1M LUCILA Stop: 02/13/19 09:15 Last Infusion: 02/13/19 10:17 Dose: 0 mls/hr Documented by: [id number] Admin: 02/13/19 08:35 Dose: 999 mls/hr Documented by: [id number] Famotidine (Pepcid 20mg Iv Push) 20 mg in 5 mls @ 2.5 mls/min IV NOW STA Stop: 02/13/19 08:47 Last Admin: 02/13/19 08:53 Dose: 2.5 mls/min Documented by: [id number] Prochlorperazine (Compazine) 2 mls @ 1 mls/min IV ONE ONE Stop: 02/13/19 08:47 Last Admin: 02/13/19 08:53 Dose: 1 mls/min Documented by: [id number] Sodium Chloride (Nss 1000ml) 1,000 mls @ 999 mls/hr IV .Q1H1M ONE Stop: 02/13/19 09:47 Last Infusion: 02/13/19 10:16 Dose: 0 mls/hr Documented by: [id number] Infusion: 02/13/19 10:16 Dose: 0 mls/hr Documented by: [id number] Admin: 02/13/19 08:57 Dose: 999 mls/hr Documented by: [id number] Sucralfate (Carafate) 1 gm PO NOW STA Stop: 02/13/19 10:52 Last Admin: 02/13/19 11:20 Dose: Not Given Documented by: [id number] Sucralfate (Carafate Tab) Confirm Administered Dose 1 gm .ROUTE .SenSageK-MED ONE Stop: 02/13/19 11:19 Last Admin: 02/13/19 11:20 Dose: 1 gm Documented by: [id number] ECG Rate (beats per minute): 92 Rhythm: normal sinus Code Status & VTE Plan Code Status Full Code VTE Prophylaxis Plan VTE Prophylaxis will be ordered: Yes Supervising Physician Co-Signing Physician Notes I saw this patient with the physician clinical laboratory assistant, I participated in the history, physical, review of systems, and physical exam. I reviewed the medications with the patient and the physician clinical laboratory assistant and helped reconcile the medications. I helped take a detailed family and social history as well. I formulated the assessment and plan personally with the physician clinical laboratory assistant and went over it with the patient. ROS-No Headache, No Visual Changes, No Nausea, No Vomiting, No Fever, No Chills, No Neck Pain or Stiffness, No Chest Pain, No Palpitations, No SOB, No HOLM, No Cough, No Sputum, No Wheezing, No Abdominal Pain, No Diarrhea, No Hematemesis, No Hemoptysis, No Unexpected Weight Loss, No Flank pain, No Melena, No Hematochezia, No Frequency, No Urgency, No Burning, No Hematuria, No Rashes, No Diaphoresis. Appetite is Normal Physical Exam Gen-Awake, Somnolent, O x 2, NAD, Afebrile, Sleepy, awakens to verbal stimuli Head-NCAT, EOMI, PERRLA, Anicteric Sclera, No Posterior Pharyngeal Erythema Neck-Supple, No JVD, No Thyromegaly, No Masses, No LAD, No Bruits Lungs-Clear to Auscultation Bilaterally, No Rales, No Rhonchi, No Wheezing, No Crepitus Chest-No S4, +S1, +S2, No S3, No Murmurs, No Rubs, No Gallops, No Ectopy Abdomen-Soft, Bowel Sounds Present, Non Tender, Non Distended, No Hepatomegaly, No Splenomegaly, No Palpable Masses, No Rebound, No Rigidity, No Guarding Musculoskeletal-Full Range of Motion Bilaterally, No CVAT Extremities-No Cyanosis, No Clubbing, No Edema Nuero-Cranial Nerves II-XII grossly intact, Motor WNL, DTRs WNL, Strength WNL, Non Focal Psych-Somnolent (1) Anemia Anemia type: unspecified type Qualified Code(s): D64.9 - Anemia, unspecified (2) Pulmonary embolism Acute cor pulmonale presence: without acute cor pulmonale Chronicity: unspecified Pulmonary embolism type: unspecified Qualified Code(s): I26.99 - Other pulmonary embolism without acute cor pulmonale
--- NOTE | 2019-02-13 19:09 | CT Scan Report ---
CT chest wo con CT DOSE: HISTORY: Pneumonia crackles L base r/o pna TECHNIQUE: Multiaxial CT images of the chest were performed without contrast. A dose lowering techni que was utilized adhering to the principles of ALARA. COMPARISON: CT 02/13/2019 FINDINGS: Improved aeration of the lungs. No focal infiltrate at this time. Minimal residual basilar atelectatic change. All remaining components of the study are similar compared to the prior exam. IMPRESSION: 1. Improved aeration of both hemithoraces with no acute infiltrate. 2. Minimal peribronchial thickening also improved. The above report was generated using voice recognition software. It may contain grammatical, syntax or spelling errors. Electronically signed by: Sancho Morris M.D. 02/13/2019 7:08 PM
[2019-02-13 19:16] LABS: Amphetamines+Metham, Urine Neg (Neg); Barbiturates, Urine Neg (Neg); Benzodiazepine, Urine Neg (Neg); Cocaine, Urine Neg (Neg); MDMA (Ecstacy), Urine Neg (Neg); Methadone, Urine Neg (Neg); Opiate, Urine Neg (Neg); Phencyclidine, Urine Neg (Neg)
[2019-02-13] MEDS ORDERED: GLUCAGON FOR INJ 1 MG VIAL SQ PRN (19:56)
[2019-02-13] MEDS ORDERED: GLUCOSE 10 TABS/TUBE PO PRN (19:56)
[2019-02-13] MEDS ORDERED: POLYETHYLENE (MIRALAX) 17 GM PACK PO PRN (19:56)
[2019-02-13] MEDS ORDERED: cefTRIAXone SODIUM 1,000 MG in DEXTROSE 5% 50 ML IV SCH (19:56)
[2019-02-13] MEDS ORDERED: GLUCOSE 40% GEL 15 GM TUBE PO PRN (19:56)
[2019-02-13] MEDS ORDERED: MAGNESIUM HYDROXIDE SUSP 30 ML UDC PO PRN (19:56)
[2019-02-13] MEDS ORDERED: DEXTROSE 50% 50 ML SYRINGE IV PRN (19:56)
[2019-02-13] MEDS ORDERED: ONDANSETRON INJ 2 MG/ML 2 ML VIAL IV PRN (19:56)
[2019-02-13] MEDS ORDERED: ALUMINUM/MAGNESIUM SUSP 30 ML UDC PO PRN (19:56)
[2019-02-13] MEDS ORDERED: PHARMACY GLYCEMIC MGMT CONSULT STA (19:56)
[2019-02-13] MEDS ORDERED: ACETAMINOPHEN 325 MG TAB PO PRN (19:56)
[2019-02-13] MEDS: cefTRIAXone SODIUM 2,000 MG in DEXTROSE 5% 50 ML IV SCH (20:30)
[2019-02-13] MEDS: SODIUM CHLORIDE 0.9% 1000ML 1,000 ML IV SCH (20:30)
[2019-02-13] MEDS ORDERED: INSULIN GLARGINE SOLOSTAR 100 UNITS/ML 3 ML PEN SC ONE (21:00)
[2019-02-13] MEDS: APIXABAN 5 MG TABLET PO SCH (21:42)
[2019-02-13] MEDS: AZITHROMYCIN 500 MG in DEXTROSE 5% 250 ML IV SCH (21:43)
[2019-02-13] MEDS ORDERED: COUGH DROP (SUGAR FREE) LOZ 24 LOZ/1 BOX BUCCAL ONE (21:47)
[2019-02-13] MEDS: INSULIN ASPART 100 UNITS/ML 3 ML PEN SC SCH (21:54)
[2019-02-14] MEDS ORDERED: INSULIN ASPART 100 UNITS/ML 3 ML PEN SC SCH (02:00)
[2019-02-14 07:02] LABS: Hematocrit (blood only) 31.9 % (42-52); Hemoglobin 11.2 g/dL (14.0-18.0); Mean Corpuscular Hgb Conc 35.1 g/dL (32-36); Mean Corpuscular Volume 83.5 fL (80-100); Mean Platelet Volume 9.2 fL (7.4-10.4); Platelet Count 200 K/uL (130-400); RDW Coefficient of Variation 12.7 % (11.5-14.5); RDW Standard Deviation 38.9 fL (36.4-46.3); Red Blood Count 3.82 M/uL (4.7-6.1); White Blood Count 5.25 K/uL (4.8-10.8)
[2019-02-14] MEDS ORDERED: PHARMACY GLYCEMIC MGMT CONSULT PRN (07:15)
[2019-02-14 07:36] LABS: BUN Creatinine Ratio 19.3 (10-20); Calcium 7.9 mg/dl (8.5-10.1); Est GFR (African American) 117.5; Est GFR (Non-African American) 101.4; Potassium 4.1 mmol/L (3.5-5.1)
[2019-02-14] MEDS: SODIUM CHLORIDE 0.9% 1000ML 1,000 ML IV SCH (07:56)
[2019-02-14] MEDS: APIXABAN 5 MG TABLET PO SCH ×2 (07:57→21:16)
[2019-02-14] MEDS: LISINOPRIL 40 MG TAB PO SCH (07:57)
[2019-02-14] MEDS: INSULIN ASPART 100 UNITS/ML 3 ML PEN SC SCH ×4 (08:15→21:19)
[2019-02-14 08:25] LABS: Estimated Average Glucose 154 mg/dl
[2019-02-14] MEDS ORDERED: INSULIN HUMAN NPH SC ONE (08:45)
--- NOTE | 2019-02-14 08:52 | Hospitalist Progress Note ---
Date of Service February 14, 2019 Assessment & Plan (1) Pulmonary embolism: This is a 48-year-old incarcerated male who has a significant PMH of IDDM and HTN who presented to [facility] ED secondary to N/V/D and chest pain. PULMONARY EMBOLISM: Had some chest pain. D dimer elevated, so CT chest was done. -CTA chest + RUL subsegmental PE of indeterminate age, mild distal esophagus wall thickening -CXR: Minimal bibasilar opacities suggest atelectasis with summation density. -Risk factors- None known -Started on apixaban 10 mg twice daily followed by 5 mg twice daily for PE -Empirically was started on IV Rocephin, azithromycin as had bilateral crackles and some cough which could be secondary to PE. Discontinue within 48 hours if no signs of infection and cultures negative. Does c/o cough but no leucocytosis, fever -US duplex- Ordered SOMNOLENCE - Resolved Patient came with extreme somnolence and fatigue on admission, now improved. AAOX3 now Could be secondary to volume depletion due to multiple episodes of vomiting and as responded to IV fluids Denies intake of any drugs. Urine toxicologynegative Work-upCT headnegative for acute abnormalities, Blood cx - Pending, Lactic acid, Procalcitonin- neg NAUSEA/VOMITING/ABD PAIN- Resolving CT scan - possible enteritis -IV Fluids- okay to discontinue -Tolerating PO diet now -IV Zofran PRN HYPOVOLEMIA- Resolved Secondary to N/V -Dry on exam on admission with extreme somnolence/fatigue -Improved with IVF. OK to discontinue as tolerating PO diet well ANEMIA Unknown baseline -No signs of bleeding -Monitor DM-2 Lantus/Novolog per protocol -HBA1C- 7.0 -ISS HTN -Elevated. -On lisinopril, Held HCTZ. Will restart HCTZ as BP is going up -Monitor SCDS/TEDS Eliquis initiated during this admission Disposition: Discharge back to detention- Likely in AM Follow up: PCP at [facility] detention Subjective Patient is feeling much better. Denies abdominal pain, no nausea vomiting Tolerating PO diet Denies any chest pain, SOB Not on oxygen, saturating 97% on RA Physical Exam Physical Exam: GENERAL- AAOX3, No acute distress LUNGS- Air entry bilaterally equal. Few crackles bilaterally HEART- Regular rate and rhythm. No murmurs ABDOMEN- Soft, non tender, non distended, Bowel sounds heard. EXTREMITIES- Good peripheral pulses, no edema NEUROMUSCULAR- AAOX3, Grossly no focal deficits Results & Data Vital Signs (Past 12 Hours) Vital Signs Temp Pulse Pulse Resp BP Pulse Ox 02/14/19 07:11 36.9 C 71 16 168/97 H 97 02/14/19 04:08 36.9 C 72 18 182/102 H 99 02/14/19 00:00 64 02/13/19 23:31 36.9 C 72 18 153/91 H 97 (1) Pulmonary embolism Acute cor pulmonale presence: without acute cor pulmonale Chronicity: unspecified Pulmonary embolism type: unspecified Qualified Code(s): I26.99 - Other pulmonary embolism without acute cor pulmonale
--- NOTE | 2019-02-14 13:24 | Pharmacy Report ---
Glycemic Control Consultation - Date of Service February 14, 2019 - Scope Scope: Glycemic Pharmacist consulted by Dr Grubbs on 02/14/19 for glycemic control and to write orders per [facility] inpatient glycemic control protocol - Objective Weight: 85.5 kg Accuchecks BSG (last 24hrs): 02/13/19 02/14/19 02/14/19 20:13 01:46 06:40 Glucose 102 H POC Glucose 140 H 135 H 02/14/19 02/14/19 07:17 11:38 Glucose POC Glucose 105 H 143 H Laboratory Data (last 24hrs): 02/14/19 06:40 Potassium 4.1 Carbon Dioxide 30 Anion Gap 3.0 Creatinine 0.90 Est Cr Clr Drug Dosing 102.0 HbA1c: Hemoglobin A1c 7.0 % (4.5-5.6) H 02/14/19 06:40 - Recent Pertinent Medications Outpatient Anti-diabetic Regimen: * NPH BIDM 20qam 15 qpm, metformin * A1c = 7.0 % 02/14/19 - Assessment & Plan Assessment & Plan: ASSESSMENT: * Mr. Wilson is a 48yo M p/w N/V concurrent chest pain. PMHx consistent with HTN, DMII, anemia. BSGs have been reasonably well controlled since admission. He receives NPH and metformin as an outpt. PO intake is improving. PLAN FOR INPATIENT GLYCEMIC CONTROL: * Holding outpatient oral diabetes medications * Basal insulin * NPH scale SQ BIDM * QAM: 15 units if BSGs <120, give 20units for BSGs >/=120 * QPM: 10 units if BSGs <120, give 15 units if BSGs >/=120 * Bolus insulin * NovoLog per scale ACHS or Q6hrs while NPO * Goal Range: Low 110 mg/dL - High 140 mg/dL * Correction Factor: 25 mg/dL/unit * Nutritional / Prandial insulin per carb ratio of 1 unit per 7 grams CHO consumed * Please note that the plan above was derived based on current level of insulin resistance and hospital stress. These recommendations are appropriate for inpatient admission only. Plan of care upon discharge will need to be reassessed to avoid potential outpatient hypo/hyperglycemia. Thank you.
--- NOTE | 2019-02-14 15:57 | Ultrasound Report ---
US venous doppler LE BI HISTORY: Pain. Edema. rule out dvt COMPARISON STUDY: None. FINDINGS: There is normal compressibility, flow, and augmentation within the bilateral lower extremit y deep venous systems. IMPRESSION: No DVT within the right or left lower extremity. The above report was generated using voice recognition software. It may contain grammatical, syntax or spelling errors. Electronically signed by: Sancho Morris M.D. 02/14/2019 3:56 PM
[2019-02-14] MEDS: hydroCHLOROthiazide 25 MG TAB PO SCH (16:03)
[2019-02-14] MEDS: CARBOHYDRATES FOR HYPOGLYCEMIA PO PRN (16:28)
[2019-02-14] MEDS: INSULIN HUMAN NPH SC SCH (17:16)
[2019-02-14] MEDS ORDERED: AMLODIPINE BESYLATE 5 MG TAB PO ONE (21:10)
--- NOTE | 2019-02-14 21:10 | Hospitalist Progress Note ---
Date of Service February 14, 2019 Subjective Made aware by RN of uncontrolled blood pressure. SBP 150-200s the last 24 hours. Patient asymptomatic as per RN. AP Hypertensive urgency Add Norvasc to px's current Lisinopril-HCTZ regimen. Will relay to AM provider. Results & Data Vital Signs (Past 12 Hours) Vital Signs Temp Pulse Resp BP Pulse Ox 02/14/19 19:42 37.0 C 77 19 202/113 H 98 02/14/19 15:55 36.7 C 73 19 188/97 H 98 02/14/19 11:49 36.6 C 68 16 172/95 H 97
[2019-02-14] MEDS: cefTRIAXone SODIUM 2,000 MG in DEXTROSE 5% 50 ML IV SCH (21:14)
[2019-02-14] MEDS: AZITHROMYCIN 500 MG in DEXTROSE 5% 250 ML IV SCH (22:11)
[2019-02-15 06:47] LABS: Hematocrit (blood only) 33.3 % (42-52); Hemoglobin 11.6 g/dL (14.0-18.0); Mean Corpuscular Hgb Conc 34.8 g/dL (32-36); Mean Corpuscular Volume 84.7 fL (80-100); Mean Platelet Volume 9.2 fL (7.4-10.4); Platelet Count 231 K/uL (130-400); RDW Coefficient of Variation 12.6 % (11.5-14.5); Red Blood Count 3.93 M/uL (4.7-6.1); White Blood Count 5.41 K/uL (4.8-10.8)
[2019-02-15 07:23] LABS: Calcium 8.5 mg/dl (8.5-10.1); Creatinine Clr Calc Pharmacy 90.4 ml/min; Est GFR (African American) 102.2; Est GFR (Non-African American) 88.2; Potassium 3.8 mmol/L (3.5-5.1)
[2019-02-15] MEDS: LISINOPRIL 40 MG TAB PO SCH (07:38)
[2019-02-15] MEDS: APIXABAN 5 MG TABLET PO SCH ×2 (07:41→20:52)
[2019-02-15] MEDS ORDERED: INSULIN HUMAN NPH SC SCH (08:00)
[2019-02-15] MEDS: INSULIN ASPART 100 UNITS/ML 3 ML PEN SC SCH ×4 (08:32→20:53)
[2019-02-15] MEDS: hydroCHLOROthiazide 25 MG TAB PO SCH (08:43)
[2019-02-15] MEDS ORDERED: AMLODIPINE BESYLATE 5 MG TAB PO ONE (09:04)
--- NOTE | 2019-02-15 15:34 | Pharmacy Report ---
Pharmacy Glycemic Short Note 2 - Date of Service February 15, 2019 - Glycemic Short BSG Results (Last 24 hours): 02/14/19 02/14/19 02/14/19 16:22 16:23 16:36 Glucose POC Glucose 44 L* 42 L* 83 02/14/19 02/15/19 02/15/19 20:35 06:21 07:20 Glucose 92 POC Glucose 155 H 95 02/15/19 11:09 Glucose POC Glucose 128 H OUTPATIENT ANTIDIABETIC REGIMEN: * metformin 1 gm po BID, NPH 25 units QAM, 15 units QPM * A1c 7.0% 02/14/19 ASSESSMENT: * Patient received 49 units of insulin yesterday; 30 of which was NPH * Patient had hypoglycemic event yesterday at dinner, but other BSGs adequate, loosened carb ratio * NPH doses reduced per scale PLAN FOR INPATIENT GLYCEMIC CONTROL: * Hold outpatient oral diabetes medications * Basal insulin * NPH 15 units this AM * 10 units <120 * 15 units>= 120 * Bolus insulin * NovoLog per scale ACHS or Q6hrs while NPO * Goal Range: Low 110 mg/dL - High 140 mg/dL * Correction Factor: 25 mg/dL/unit * Nutritional / Prandial insulin per carb ratio of 1 unit per 9 grams CHO consumed PLAN FOR DISCHARGE: * Patient's A1c 7.0% which indicates adequate outpatient control, patient can likely resume outpatient regimen if not experiencing frequent hypoglycemic events.
[2019-02-15] MEDS: CARBOHYDRATES FOR HYPOGLYCEMIA PO PRN ×2 (16:35→16:48)
[2019-02-15] MEDS: INSULIN HUMAN NPH SC SCH (17:19)
--- NOTE | 2019-02-15 18:03 | Hospitalist Progress Note ---
Date of Service February 15, 2019 Assessment & Plan (1) Pulmonary embolism: Patient is a 48 yr incarcerated male who has a significant PMH of IDDM and HTN who presented to [facility] ED secondary to N/V/D and chest pain. PULMONARY EMBOLISM: CTA chest + RUL subsegmental PE of indeterminate age, mild distal esophagus wall thickening CXR: Minimal bibasilar opacities suggest atelectasis with summation density. Venous Doppler:No DVT within the right or left lower extremity. Started on apixaban 10 mg twice daily--plan to transition to 5 mg twice daily Empirically received IV Abx for possible URI SOMNOLENCE - Resolved Patient came with extreme somnolence and fatigue on admission Could be secondary to volume depletion due to multiple episodes of vomiting and as responded to IV fluids Urine toxicologynegative CT headnegative for acute abnormalities Blood Cx: Negative to date NAUSEA/VOMITING/ABD PAIN Possible enteritis on CT scan Clinically improving Tolerating diet Continue IV Rocephin follow HYPOVOLEMIA Resolved Secondary to N/V Improved with IVF ANEMIA Unknown baseline No signs of bleeding Monitor DM II Lantus/Novolog per protocol HBA1C- 7.0 HTN Elevated Continue lisinopril, HCTZ Started on amlodipine Monitor DVT Px: On Eliquis Code Status: Full Code Disposition: Discharge back to half-way when stable Follow up: PCP at [facility] half-way Subjective Patient is seen and examined at bedside States having transient abdominal discomfort this morning which currently improved Blood pressure significantly elevated this morning, denies any headache, dizziness, change in vision Transient nosebleed this morning, which currently resolved Denies any chest pain, shortness of breath, diarrhea, nausea, vomiting Guards at bedside Review of Systems Review of Systems: All systems reviewed & are unremarkable except as noted in HPI & below Physical Exam Physical Exam: Physical Exam: Vitals signs as noted above General Appearance:Moderately built and nourished, no apparent distress Head: normocephalic, Atraumatic Eyes: normal inspection, EOMI Neck: supple, Trachea midline Respiratory/Chest: Normal breath sounds, CTA Cardiovascular: S1, S2, No murmur Abdomen/GI:Soft, mild tender, Bowel sounds present Extremities/Musculoskelatal:normal inspection, no edema Neurologic/Psych:AAOX3, grossly no focal neurological deficits Skin: normal color, warm Results & Data Vital Signs (Past 12 Hours) Vital Signs Temp Pulse Pulse Resp BP BP Pulse Ox 08/01/19 15:15 37.0 C 73 19 161/90 H 98 02/15/19 14:05 169/96 H 02/15/19 11:10 36.9 C 69 16 173/99 H 97 02/15/19 10:36 192/104 H 02/15/19 08:00 72 02/15/19 07:19 37.1 C 72 16 201/106 H 189/107 H 98 Laboratory Results Short CBC 02/15/19 Range/Units 06:21 WBC 5.41 (4.8-10.8) K/uL Hgb 11.6 L (14.0-18.0) g/dL Hct 33.3 L (42-52) % Plt Count 231 (130-400) K/uL BMP 02/15/19 06:21 Sodium 141 Potassium 3.8 Chloride 106 Carbon Dioxide 31 BUN 15 Creatinine 1.01 Glucose 92 Calcium 8.5 (1) Pulmonary embolism Acute cor pulmonale presence: without acute cor pulmonale Chronicity: unspecified Pulmonary embolism type: unspecified Qualified Code(s): I26.99 - Other pulmonary embolism without acute cor pulmonale
--- NOTE | 2019-02-15 19:55 | Hospitalist Progress Note ---
Date of Service February 15, 2019 Subjective Made aware by RN of uncontrolled blood pressure. SBP 180s on current regimen of lisinopril 40 mg, amlodipine 10 mg, and HCTZ. Patient asymptomatic as per RN. AP Hypertensive urgency Add Hydralazine to current regimen. Will relay to AM provider. Results & Data Vital Signs (Past 12 Hours) Vital Signs Temp Pulse Pulse Resp BP BP Pulse Ox 02/15/19 19:08 37.2 C 72 19 183/104 H 96 02/15/19 16:00 66 02/15/19 15:15 37.0 C 73 19 161/90 H 98 02/15/19 14:05 169/96 H 02/15/19 11:10 36.9 C 69 16 173/99 H 97 02/15/19 10:36 192/104 H 02/15/19 08:00 72
[2019-02-15] MEDS ORDERED: HydrALAZINE 10 MG TAB PO SCH (20:00)
[2019-02-15] MEDS: cefTRIAXone SODIUM 2,000 MG in DEXTROSE 5% 50 ML IV SCH (20:52)
[2019-02-15] MEDS ORDERED: AMLODIPINE BESYLATE 5 MG TAB PO SCH (21:00)
[2019-02-16] MEDS: AMLODIPINE BESYLATE 5 MG TAB PO SCH (08:34)
[2019-02-16] MEDS: LISINOPRIL 40 MG TAB PO SCH (08:35)
[2019-02-16] MEDS: APIXABAN 5 MG TABLET PO SCH ×2 (08:35→20:48)
[2019-02-16] MEDS: hydroCHLOROthiazide 25 MG TAB PO SCH (08:35)
[2019-02-16] MEDS: INSULIN ASPART 100 UNITS/ML 3 ML PEN SC SCH ×4 (08:36→20:49)
[2019-02-16] MEDS: INSULIN HUMAN NPH SC SCH ×2 (08:36→16:55)
[2019-02-16] MEDS ORDERED: AMLODIPINE BESYLATE 5 MG TAB PO SCH (09:00)
[2019-02-16] MEDS: DOCUSATE SODIUM 100 MG CAP PO SCH ×2 (10:27→20:48)
[2019-02-16] MEDS: POLYETHYLENE (MIRALAX) 17 GM PACK PO SCH (10:27)
--- NOTE | 2019-02-16 12:55 | Hospitalist Progress Note ---
Date of Service February 16, 2019 Assessment & Plan (1) Pulmonary embolism: Patient is a 48 yr incarcerated male who has a significant PMH of IDDM and HTN who presented to [facility] ED secondary to N/V/D and chest pain. PULMONARY EMBOLISM: CTA chest + RUL subsegmental PE of indeterminate age, mild distal esophagus wall thickening CXR: Minimal bibasilar opacities suggest atelectasis with summation density. Venous Doppler:No DVT within the right or left lower extremity. Started on apixaban 10 mg twice daily--plan to transition to 5 mg twice daily Empirically received IV Abx for possible URI>>Transition to PO Augmentin CONSTIPATION: Started on bowel regimen SOMNOLENCE - Resolved Patient came with extreme somnolence and fatigue on admission Could be secondary to volume depletion due to multiple episodes of vomiting and as responded to IV fluids Urine toxicologynegative CT headnegative for acute abnormalities Blood Cx: Negative to date NAUSEA/VOMITING/ABD PAIN: Likely due to constipation Possible enteritis on CT scan Clinically improved Tolerating diet IV Abx transitioned to PO Augmentin HYPOVOLEMIA Resolved Secondary to N/V Improved with IVF ANEMIA Unknown baseline No signs of bleeding Monitor DM II Lantus/Novolog per protocol HBA1C- 7.0 HTN Elevated--Asymptomatic Continue lisinopril, HCTZ Started on amlodipine, Hydralazine Monitor DVT Px: On Eliquis Code Status: Full Code Disposition: Discharge back to detention when stable Follow up: PCP at [facility] Subjective Patient is seen and examined at bedside Reports constipation and mild abd discomfort Bp elevated this morning, asymptomatic No other complaints Denies any chest pain, shortness of breath, diarrhea, nausea, vomiting Guards at bedside Review of Systems Review of Systems: All systems reviewed & are unremarkable except as noted in HPI & below Physical Exam Physical Exam: Physical Exam: Vitals signs as noted above General Appearance:Moderately built and nourished, no apparent distress Head: normocephalic, Atraumatic Eyes: normal inspection, EOMI Neck: supple, Trachea midline Respiratory/Chest: Normal breath sounds, CTA Cardiovascular: S1, S2, No murmur Abdomen/GI:Soft, mild tender, Bowel sounds present Extremities/Musculoskelatal:normal inspection, no edema Neurologic/Psych:AAOX3, grossly no focal neurological deficits Skin: normal color, warm Results & Data Vital Signs (Past 12 Hours) Vital Signs Temp Pulse Pulse Resp BP BP Pulse Ox 02/16/19 10:49 37.0 C 72 20 168/94 H 98 02/16/19 08:00 73 02/16/19 06:52 37.2 C 73 18 198/110 H 97 02/16/19 03:34 36.9 C 73 16 183/102 H 97 (1) Pulmonary embolism Acute cor pulmonale presence: without acute cor pulmonale Chronicity: unspecified Pulmonary embolism type: unspecified Qualified Code(s): I26.99 - Other pulmonary embolism without acute cor pulmonale
--- NOTE | 2019-02-16 13:32 | Pharmacy Report ---
Glycemic Control Progress Note - Date of Service February 16, 2019 - Scope Glycemic Pharmacist consulted for glycemic control to write orders per [facility] inpatient glycemic control protocol. - Objective Accuchecks BSG(last 24 hours):: 02/15/19 02/15/19 02/15/19 16:32 16:33 16:47 POC Glucose 65 L* 62 L* 58 L* 02/15/19 02/15/19 02/15/19 16:48 17:03 20:29 POC Glucose 59 L* 109 H 136 H 02/16/19 02/16/19 06:58 10:53 POC Glucose 150 H 251 H HbA1c:: Hemoglobin A1c 7.0 % (4.5-5.6) H 02/14/19 06:40 - Recent Pertinent Medications The patient is currently receiving: * Basal insulin: NPH 15-20 units in morning and 10-15 units with dinner u * Correctional Insulin: Novolog Correction per scale ACHS Goal Range: Low 110 mg/dL - High 140 mg/dL Correction Factor: 25 mg/dL/unit * Prandial insulin: Per carb ratio of 1 unit per 9 grams CHO consumed - Outpatient Anti-Diabetic Meds metformin 1 gm PO BID plus NPH 25 units in morning and 15 units in the evening - Assessment & Plan ASSESSMENT: * See progress note from 02/14/19 for more background info, in short: * Pt receiving SQ basal bolus insulin regimen for hyperglycemia secondary to baseline DM (outpatient regimen on hold) and infection currently being treated with Augmentin * Patient is currently receiving an average of 36 units of insulin per day * 25 units of basal insulin * 11 units of prandial/correctional insulin * BSGs ranging 62 - 136 mg/dl over the past 24hrs * Changes needed to insulin regimen: * AM Fasting BSG = 150 mg/dl. This is in goal range for patient based on inpatient targets and co-morbidities. The patient had a low blood sugar the past two days at dinnertime. This is most likely secondary to aggressive NPH dosing in the morning. Reduced dose to 10 units in both the morning and evening. As per the childbirth educator note, will consider Lantus tomorrow if blood sugars are still unable to be controlled. * Post-prandial BSGs trend lower. Most of the patient's insulin regimen is basal. Therefore it is necessary to reduce basal and will for right now continue with current Novolog parameters. * Total daily dose = 40 units. PLAN FOR INPATIENT GLYCEMIC CONTROL: * Decreasing NPH to 10 units SQ BIDM * Continuing correction factor of 25 mg/dl/unit * Continuing carb ratio of 1 unit per 8 grams CHO consumed * Continuing goal range of Low 110 mg/dL - High 140 mg/dL RECOMMENDATIONS FOR DISCHARGE: * HbA1C is reasonable for patient. Monitor patient closely and consider addition of mealtime insulin if HbA1C increases. * Please note that the plan above was derived based on current level of insulin resistance and hospital stress. These recommendations are appropriate for inpatient admission only. Plan of care upon discharge will need to be reassessed to avoid potential outpatient hypo/hyperglycemia. Thank you.
[2019-02-16] MEDS: AMOXICILLIN/CLAVULANATE 500 MG TAB PO SCH (16:56)
[2019-02-17] MEDS: DOCUSATE SODIUM 100 MG CAP PO SCH (08:31)
[2019-02-17] MEDS: APIXABAN 5 MG TABLET PO SCH (08:32)
[2019-02-17] MEDS: hydroCHLOROthiazide 25 MG TAB PO SCH (08:32)
[2019-02-17] MEDS: AMLODIPINE BESYLATE 5 MG TAB PO SCH (08:32)
[2019-02-17] MEDS: LISINOPRIL 40 MG TAB PO SCH (08:32)
[2019-02-17] MEDS: POLYETHYLENE (MIRALAX) 17 GM PACK PO SCH (08:32)
[2019-02-17] MEDS: AMOXICILLIN/CLAVULANATE 500 MG TAB PO SCH (08:33)
[2019-02-17] MEDS: INSULIN HUMAN NPH SC SCH (08:33)
[2019-02-17] MEDS: INSULIN ASPART 100 UNITS/ML 3 ML PEN SC SCH ×2 (08:35→12:18)
--- NOTE | 2019-02-17 11:53 | Hospitalist Progress Note ---
Date of Service February 17, 2019 Assessment & Plan (1) Pulmonary embolism: Patient is a 48 yr incarcerated male who has a significant PMH of IDDM and HTN who presented to [facility] ED secondary to N/V/D and chest pain. PULMONARY EMBOLISM: CTA chest + RUL subsegmental PE of indeterminate age, mild distal esophagus wall thickening CXR: Minimal bibasilar opacities suggest atelectasis with summation density. Venous Doppler:No DVT within the right or left lower extremity. Started on apixaban 10 mg twice daily--plan to transition to 5 mg twice daily Empirically received IV Abx for possible URI>>Transition to PO Augmentin CONSTIPATION: Continue bowel regimen encourage to ambulate SOMNOLENCE - Resolved Patient came with extreme somnolence and fatigue on admission Could be secondary to volume depletion due to multiple episodes of vomiting and as responded to IV fluids Urine toxicologynegative CT headnegative for acute abnormalities Blood Cx: Negative to date NAUSEA/VOMITING/ABD PAIN: Likely due to constipation Possible enteritis on CT scan Clinically improved Tolerating diet IV Abx transitioned to PO Augmentin HYPOVOLEMIA Resolved Secondary to N/V Improved with IVF ANEMIA Unknown baseline No signs of bleeding Monitor DM II Lantus/Novolog per protocol HBA1C- 7.0 HTN Elevated--Asymptomatic Continue lisinopril, HCTZ Started on amlodipine, Hydralazine Monitor DVT Px: On Eliquis Code Status: Full Code Disposition: Discharge back to [facility] today Follow up: PCP at [facility] Subjective Patient is seen and examined at bedside No new complaints +Flatus BP better Denies any chest pain, shortness of breath, diarrhea, nausea, vomiting Guards at bedside Review of Systems Review of Systems: All systems reviewed & are unremarkable except as noted in HPI & below Physical Exam Physical Exam: Physical Exam: Vitals signs as noted above General Appearance:Moderately built and nourished, no apparent distress Head: normocephalic, Atraumatic Eyes: normal inspection, EOMI Neck: supple, Trachea midline Respiratory/Chest: Normal breath sounds, CTA Cardiovascular: S1, S2, No murmur Abdomen/GI:Soft, non tender, Bowel sounds present Extremities/Musculoskelatal:normal inspection, no edema Neurologic/Psych:AAOX3, grossly no focal neurological deficits Skin: normal color, warm Results & Data Vital Signs (Past 12 Hours) Vital Signs Temp Pulse Pulse Resp BP Pulse Ox 08/03/19 11:35 37.0 C 71 18 163/97 H 96 02/17/19 11:13 78 02/17/19 07:15 37.1 C 73 15 146/84 H 95 02/17/19 03:07 36.8 C 72 19 160/91 H 97 02/17/19 00:00 71 (1) Pulmonary embolism Acute cor pulmonale presence: without acute cor pulmonale Chronicity: unspecified Pulmonary embolism type: unspecified Qualified Code(s): I26.99 - Other pulmonary embolism without acute cor pulmonale
--- NOTE | 2019-02-17 12:08 | Discharge Summary ---
Date of Service February 17, 2019 Admission HPI Per Admitting Provider This is a 48-year-old incarcerated male who has a significant PMH of IDDM and HTN who presents to [facility] ED secondary to N/V/D and chest pain. Emesis began 1 day ago and continued through this morning until 630 a.m. He then developed L sided chest pain that was non radiating. He denies any associated SOB, palpitations, dizziness, lightheadedness with chest pain. Currently he is chest pain free. States pain was a, "dull ache." He states he vomitted approx 20 times. Admits to few specks of blood in vomit this morning but denies kia hematemesis. He has daily diarrhea but denies melena, hematochezia or abdominal pain. He did complain of LOPEZ early today but this has since subsided. +myalgias and cough but no hemoptysis. Pt very drowsy stating he was up all night vomiting and did not get any sleep. Guards are present stating patient has been like this since 8:30 this morning; referring to the somnolence and drowsiness. Pt denies any substance use while in correction. Patient admits to prior tobacco and alcohol use, positive prior substance abuse with cocaine Denies any current tobacco, alcohol or drug abuse while in correction Denies any past surgical history Denies any significant family history Admission Exam Per Admitting Provider Gen: WD/WN, M, lying in bed, very drowsy, easily arousable with verbal stimuli but falls asleep quickly, NAD, Head: Normocephalic, Atraumatic Eyes: Sclera normal, no conjunctival injection, PERRLA, EOMI ENT: Gross hearing intact, normal pharynx, mucous membranes moist Neck: supple, no adenopathy, No JVD, no bruit, Resp: Clear to auscultation b/l with L basilar crackles, no wheeze or rhonchi. Normal insp/exp effort, no accessory muscle use CV: Regular rate, regular rhythm, no murmur, rub, gallop, or ectopy Abd: +BS x 4, soft, nontender, nondistended Musculoskeletal: moves extremities active rom x 4, strength intact, good chemist organic strength Extremities: No edema bilaterally Skin: warm, moist, no rash, negative turgor, cap refill < 2sec Neuro: Alert and oriented x 3 to basics, speech normal, flat and drowsy mood/affect, cran nerve 2-12 intact grossly, negative Brudzinski/kernig sign : deferred Principal Diagnosis Discharge Information Discharge Diagnosis Acute pulmonary embolism Constipation Possible enteritis Dehydration Discharge Goals Decrease discomfort,Improve disease control, Improve function Discharge Activity Limitations Resume your previous activity Discharge Data Allergies Allergy/AdvReac Type Severity Reaction Status Date / Time No Known Allergies Allergy Unverified 02/13/19 08:45 Consultations 02/13/19 13:09 ED Decision to Admit Stat 02/13/19 19:56 Consult Case Management - Discharge Planning Routine Procedures Performed CTA: 1. Segmental and subsegmental partially occlusive age-indeterminate pulmonary emboli of the right upper lobe. The distal segmental and subsegmental branches of the lung bases are suboptimally visualized secondary to respiratory motion. 2. No adenopathy or focal airspace consolidation. 3. Mild nonspecific wall thickening about the distal esophagus. Abd CT: 1. Moderate to marked urinary bladder distention. Correlate clinically to exclude urinary bladder outlet obstruction. 2. No bowel obstruction or bowel wall thickening. Normal appendix. 3. A few scattered loops of nondilated fluid-filled small bowel are noted with air-fluid levels. This may be physiologic or reflect a mild enteritis. 4. Additional findings as above. Head CT: No acute intracranial abnormality. Chest CT: 1. Improved aeration of both hemithoraces with no acute infiltrate. 2. Minimal peribronchial thickening also improved. Venous Doppler: No DVT within the right or left lower extremity. Ordered Studies 02/13/19 10:50 CT abd pelvis IV con only Stat CT angio chest PE protocol Stat 02/13/19 13:07 CT head/brain wo con Stat 02/13/19 15:39 CT chest wo con Urgent 02/14/19 13:45 US venous doppler LE BI Routine Hospital Course (1) Pulmonary embolism: Patient is a 48 yr incarcerated male who has a significant PMH of IDDM and HTN who presented to [facility] ED secondary to N/V/D and chest pain. PULMONARY EMBOLISM: CTA chest + RUL subsegmental PE of indeterminate age, mild distal esophagus wall thickening CXR: Minimal bibasilar opacities suggest atelectasis with summation density. Venous Doppler:No DVT within the right or left lower extremity. Started on apixaban 10 mg twice daily--plan to transition to 5 mg twice daily Empirically received IV Abx for possible URI>>Transition to PO Augmentin CONSTIPATION: Continue bowel regimen encourage to ambulate SOMNOLENCE - Resolved Patient came with extreme somnolence and fatigue on admission Could be secondary to volume depletion due to multiple episodes of vomiting and as responded to IV fluids Urine toxicologynegative CT headnegative for acute abnormalities Blood Cx: Negative to date NAUSEA/VOMITING/ABD PAIN: Likely due to constipation Possible enteritis on CT scan Clinically improved Tolerating diet IV Abx transitioned to PO Augmentin HYPOVOLEMIA Resolved Secondary to N/V Improved with IVF ANEMIA Unknown baseline No signs of bleeding Monitor DM II Lantus/Novolog per protocol HBA1C- 7.0 HTN Elevated--Asymptomatic Continue lisinopril, HCTZ Started on amlodipine, Hydralazine Monitor DVT Px: On Eliquis Code Status: Full Code Disposition: Discharge back to correction today Follow up: PCP at [facility] Total Time Total Time Spent Total Time Spent (In Minutes): 41 minutes Total Time Includes: Examination of the Patient, Discharge Planning, Medication Reconciliation, Communication With Other Providers and Other Discharge Plan Discharge Items Patient Disposition: [facility] Facility Reason For Visit: PE,ENCEPHALOPATHY Discharge Diagnosis: Acute pulmonary embolism Constipation Possible enteritis Dehydration Discharge Goals: Decrease discomfort, Improve disease control and Improve function Activity: Resume your previous activity Exercise/Sports: Gradually increase as tolerated Non-emergency contact: Primary Care Provider Call non-emergency contact if: you have any medication questions, your symptoms worsen, your pain is not controlled, your pain is worsening, your pain is unusual for you, your pain is concerning for you and you have a fever Follow-up/Referrals: Rajeev Morin DO [Primary Care Provider] - Diet: Carb Consistent or DM2 Addtl Provider Instructions: Follow-up with your primary care physician at correctional facility in 1 week Complete antibiotic course, Augmentin as prescribed Continue Eliquis 10 mg twice a day until Feb 20, 2019 and STOP Start taking Eliquis 5mg twice a day starting Feb 21, 2019 Seek immediate medical attention if your symptoms reoccur or worsen Prescriptions: New amoxicillin-pot clavulanate 500-125 mg Tablet 1 tab PO BIDM Qty: 5 RF: 0 Eliquis 5 mg Tablet 5 mg PO UD Qty: 60 RF: 0 polyethylene glycol 3350 [Miralax] 17 gram Powder In Packet 17 g PO DAILY PRN (Reason: Constipation) 30 Days Qty: 30 RF: 0 hydralazine 25 mg Tablet 25 mg PO TID 30 Days Qty: 90 RF: 0 amlodipine [Norvasc] 5 mg Tablet 5 mg PO QAM 30 Days Qty: 30 RF: 0 ranitidine HCl 150 mg Tablet 150 mg PO BID 30 Days Qty: 60 RF: 0 docusate sodium 100 mg Capsule 100 mg PO BID 30 Days Qty: 60 RF: 0 Continued metformin 1,000 mg Tablet 1,000 mg PO BID RF: 0 hydrochlorothiazide 25 mg Tablet 25 mg PO DAILY RF: 0 lisinopril 40 mg Tablet 40 mg PO DAILY RF: 0 Hydrocerin Lotion 1 applic TOPICAL DAILY PRN (Reason: skin) RF: 0 insulin NPH and regular human 100 unit/mL (70-30) Insulin Pen 15 unit SUBCUT QPM RF: 0 insulin NPH and regular human 100 unit/mL (70-30) Insulin Pen 25 unit SUBCUT QAM RF: 0 Discontinued naproxen 500 mg Tablet 500 mg PO BID PRN (Reason: Pain) RF: 0 Stand-Alone Forms: Call Back Authorization, [facility] Discharge Orders: Discharge Order (Routine); Ordered 02/17/19 Ordered By: Gideon Angeles Admission Data Admit Date/Time: 02/16/19 15:48 Attending Provider: Gideon Angeles Admit Provider: Gopi Bennett Primary Care Provider: Rajeev Morin Other Providers: Gopi Bennett ; Rhonda Duron Service: Telemetry Other Interventions: Discharge Summary Assessment (RN) Last Done: 02/17/19 13:03 DC Date/Time DO NOT enter until pt leaves facility: 02/17/19 14:26
[2019-02-21] MEDS ORDERED: APIXABAN 5 MG TABLET PO SCH (09:00)
== END 2019-02-17 14:26 | DRG 176 ==
LOC: ED 07:50 → 2S 07:50 → SUATTDRO 15:34 → 2S 19:16